=== PATIENT | female | born 2000 | race Caucasian/White ===

== ENCOUNTER 2025-08-25 16:41 | Emergency (ER) | payer OTHER, SELFPAY ==
[2025-08-25 16:46] VITALS: BP 122/90; PULSE 79; TEMP 37; BMI 32.9
--- NOTE | 2025-08-25 16:53 | ED.GENADUL1 ---
HPI HPI - General Adult General Chief complaint: Abdominal Pain Stated complaint: STOMACH CRAMPS, VOMITING Time Seen by Provider: 08/25/25 16:45 Source: patient Mode of arrival: walk-in Limitations: no limitations History of Present Illness HPI narrative: 24-year-old female presented to the emergency department for lower abdominal pain. She states it started an hour ago and she vomited and had some diarrhea. No blood in her stool or masses. No trauma or fever. She states she went out last night and drank some alcohol but did not overdo it and this does not typically happen if she drinks alcohol. LMP August 13. Related Data Home Medications ?Medication ?Instructions ?Recorded ?Confirmed No Known Home Medications 08/25/25 08/25/25 Allergies Allergy/AdvReac Type Severity Reaction Status Date / Time prednisone AdvReac Mild Difficulty Verified 08/25/25 16:50 Breathing Opioid HPI Opioid Management Most Recent Opioid Data: Last Pain Scale 6 Today, 16:46 Review of Systems ROS Narrative A ten point review of systems is negative except as noted above. Exam Narrative Exam Narrative: Nurses note and vital signs reviewed General:The patient appears well and in no apparent distress.Patient is resting comfortably on cart. Skin:Warm, dry, no pallor noted.There is no rash noted. Head:Normocephalic, atraumatic Eye: Normal conjunctiva, no drainage Ears, Nose, Mouth, and Throat: oral mucosa is moist. Nares patent. Cardiovascular:Regular Rate and Rhythm Respiratory:Patient is in no distress, no accessory muscle use, lungs are clear to auscultation, no wheezing, rales or rhonchi Back:non-tender GI: Soft and nondistended. Very minimal tenderness in the suprapubic area only. No masses or distention. Musculoskeletal: The patient has no evidence of calf tenderness, no pitting edema, symmetrical pulses noted bilaterally Neurological:A&O, normal speech Psychiatric:Cooperative Constitutional Vital Signs, click to edit/add: Last Vital Signs Temp 98.6 F 08/25/25 16:46 Pulse 79 08/25/25 16:46 Resp 18 08/25/25 16:46 BP 122/90 08/25/25 16:46 Course Vital Signs Vital signs: Vital Signs Temperature 98.6 F 08/25/25 16:46 Pulse Rate 79 08/25/25 16:46 Respiratory Rate 18 08/25/25 16:46 Blood Pressure 122/90 08/25/25 16:46 Temperature 98.6 F 08/25/25 16:46 Pulse Rate 79 08/25/25 16:46 Respiratory Rate 18 08/25/25 16:46 Blood Pressure 122/90 08/25/25 16:46 Medical Decision Making MDM Narrative Medical decision making narrative: WBC is 19,800. test is negative. CT scan is ordered and the patient is signed out to Dr. Dhaliwal at change of shift. Differential Diagnosis Differential Diagnosis: Gastroenteritis, UTI, constipation, appendicitis Lab Data Lab results reviewed: Yes I reviewed the patient's lab results Labs: Lab Results 08/25/25 08/25/25 Range/Units 17:49 17:58 WBC 19.8 H (4.0-11.0) 10^3/uL RBC 4.89 (4.20-5.40) 10^6/uL Hgb 14.3 (12.0-16.0) g/dL Hct 44.1 (36.0-48.0) % MCV 90.2 (81.0-99.0) fL MCH 29.2 (26.7-34.0) pg MCHC 32.4 (29.9-35.2) g/dL RDW 12.5 (11.0-15.0) % Plt Count 252 (150-450) 10^3/uL MPV 10.1 (9.5-13.5) fL Neut % (Auto) 85.4 H (43.0-75.0) % Lymph % (Auto) 8.5 L (20.5-60.0) % Schuyler % (Auto) 5.1 (1.7-12.0) % Eos % (Auto) 0.3 L (0.9-7.0) % Baso % (Auto) 0.2 (0.2-2.0) % Neut # (Auto) 16.9 H (1.4-6.5) 10^3/uL Lymph # (Auto) 1.7 (1.2-3.8) 10^3/uL Schuyler # (Auto) 1.0 H (0.3-0.8) 10^3/uL Eos # (Auto) 0.1 (0.0-0.7) 10^3/uL Baso # (Auto) 0.0 (0.0-0.1) 10^3/uL Abs Immat Gran (auto) 0.10 H (0.00-0.03) 10^3/uL Imm/Tot Granulo (auto) 0.5 (0.0-0.5) % Sodium 142 (136-145) mmol/L Potassium 3.6 (3.5-5.1) mmol/L Chloride 102 (98-107) mmol/L Carbon Dioxide 27.9 (21.0-32.0) mmol/L Anion Gap 15.7 BUN 8.0 (7.0-18.0) mg/dL Creatinine 0.66 (0.55-1.02) mg/dL Est GFR ( Amer) >60 (>=60 mL/min/1.73m^2) Est GFR (Non-Af Amer) >60 (>=60 mL/min/1.73m^2) BUN/Creatinine Ratio 12.1 Glucose 106 (74-106) mg/dL Calcium 9.3 (8.5-10.1) mg/dL Serum HCG, Qual Negative (NEGATIVE) Urine Color Lt. yellow (YELLOW) Urine Clarity Clear (CLEAR) Urine pH 7.5 (5.0-9.0) Ur Specific Alpine 1.015 (1.005-1.025) Urine Protein Negative (NEG/TRACE) mg/dL Urine Glucose (UA) Negative (NEGATIVE) mg/dL Urine Ketones Negative (NEGATIVE) mg/dL Urine Occult Blood Negative (NEGATIVE) Urine Nitrite Negative (NEGATIVE) Urine Bilirubin Negative (NEGATIVE) Urine Urobilinogen 0.2 (0.2-1.0) EU/dL Ur Leukocyte Esterase Negative (NEGATIVE) Urine RBC None seen (0-2) #/HPF Urine WBC None seen (NONE SEEN) #/HPF Ur Squamous Epith Cells Rare (NONE/RARE) #/LPF Urine Crystals None seen (None Seen) #/HPF Urine Bacteria Trace A (NONE SEEN) #/HPF Urine Casts None seen (NONE SEEN) #/LPF Urine Mucus None seen (NONE SEEN) Ur Culture Indicated? No Discharge Plan Discharge Patient Disposition: Still a Patient
[2025-08-25 18:05] LABS: Glucose Urine UA NEGATIVE (NEGATIVE)
[2025-08-25 18:05] LABS: Hematocrit 44.1 % (36.0-48.0); Hemoglobin 14.3 g/dL (12.0-16.0); Immature Granulocytes Abs Auto 0.10 10^3/uL (0.00-0.03); Immature Granulocytes Pct Auto 0.5 % (0.0-0.5); Lymphocytes Absolute Auto 1.7 10^3/uL (1.2-3.8); Mean Corpuscular HGB Conc 32.4 g/dL (29.9-35.2); Mean Corpuscular Hemoglobin 29.2 pg (26.7-34.0); Mean Corpuscular Volume 90.2 fL (81.0-99.0); Platelet Count 252 10^3/uL (150-450); Red Blood Count 4.89 10^6/uL (4.20-5.40); White Blood Count 19.8 10^3/uL (4.0-11.0)
[2025-08-25 18:13] LABS: Anion Gap 15.7; Blood Urea Nitrogen 8.0 mg/dL (7.0-18.0); Calcium 9.3 mg/dL (8.5-10.1); Carbon Dioxide 27.9 mmol/L (21.0-32.0); Chloride 102 mmol/L (98-107); Estimated GFR (African America >60 (>=60 mL/min/1.73m^2); Estimated GFR (Non-African Ame >60 (>=60 mL/min/1.73m^2); Glucose 106 mg/dL (74-106); Potassium 3.6 mmol/L (3.5-5.1); Sodium 142 mmol/L (136-145)
[2025-08-25 18:19] LABS: Cast Seen? NONE SEEN #/LPF (NONE SEEN); Crystals Seen? None Seen #/HPF (None Seen); Urine Culture Indicated NO
--- NOTE | 2025-08-25 18:23 | CT_ITS ---
[address] [address] Patient Name: HANY BRIDGES MRN: [id number] date: 2000 Sex: F Assigned Patient Location: ER Current Patient Location: .[facility] Accession/Order Number: [id number] Exam Date: 08/25/2025 18:35 Report Date: 08/25/2025 19:01 At the request of: MARIA G ARAIZA MD Procedure: CT abdomen pelvis w con CT abdomen pelvis w con 08/25/2025 6:43 PM SIGNS AND SYMPTOMS: ^Low abdominal pain, WBC 20,000 \S.br\ TECHNIQUE: Multidetector ct axial images of the abdomen and pelvis were obtained with IV contrast. Multiplanar reformats were performed and reviewed to further define anatomy and possible pathology. CT was performed with one or more of the following dose reduction techniques: Automated exposure control, adjustment of the mA and/or kV according to patient size, or use of iterative reconstruction technique. COMPARISON: None. FINDINGS: Lower Chest: Within normal limits. ABDOMEN: Liver: Within normal limits. Bile Ducts: Normal caliber. Gallbladder: No calcified gallstones. Normal caliber wall. Pancreas: Within normal limits. Spleen: Within normal limits. Adrenals: Within normal limits. Kidneys: Within normal limits. Pelvis: Reproductive Organs: No pelvic masses. Ureters: Within normal limits. Bladder: Within normal limits. Bowel: Normal caliber. Mesenteric Lymph Nodes: No enlarged mesenteric lymph nodes. Peritoneum: No ascites or free air, no fluid collection. Vessels: within normal limits Retroperitoneum: Within normal limits. Abdominal Wall: Within normal limits. Bones: Within normal limits. CT/CT abdomen pelvis w con IMPRESSION: No bowel obstruction or obstructive uropathy. No acute intra-abdominal pathology. No free fluid or free air. Impression dictated by: Anurag De La Vega M.D. 08/25/2025 7:01 PM Dictation Location: [place] [address] Electronically authenticated by: [id number] Y Date: 08/25/2025 19:01
== END 2025-08-25 19:27 | disposition home or self-care (01) ==
PROVIDERS: Emergency Medicine; Emergency Provider Internal Medicine; PCP Family Medicine
DX: R11.2 Nausea with vomiting, unspecified (principal); R10.30 Lower abdominal pain, unspecified
CPT/HCPCS: 36415; 74177; 80048; 81001; 84703; 85025; 99285; Q9967